=== PATIENT | female | born 1955 | race Caucasian/White ===

== ENCOUNTER 2019-03-25 11:47 | Inpatient (IN) | payer BC ==
--- NOTE | 2019-03-25 12:14 | EDM.PDOC ---
ED HPI GENERAL MEDICAL PROBLEM - General Chief Complaint: General Stated Complaint: TRYING TO GET OFF PAIN PILLS Time Seen by Provider: 03/25/19 12:04 Source of Information: Reports: Patient, Provider (Dr. Robles, PCP) History Limitations: Reports: No Limitations - History of Present Illness INITIAL COMMENTS - FREE TEXT/NARRATIVE: Patient presents with vomiting that started 3 days ago. Vomiting has been 1-2x/ day with most recent 3-4 hours ago. She is trying to get off hydrocodone she has been using for fibromyalgia. She says she thinks she has been on narcotics for her fibromyalgia for 11 years. She has been on contract with her PCP for 7 tabs a day and has been using 8/day so ran out early. She tried to refill them early and couldn't (she said they were stolen then later admitted they weren't) . She has now been without hydrocodone for 4 days. She has also been taking Alprazolam bid for the past 2 years and ran out of them 5 days ago. Right now she is feeling nausea, pain from fibromyalgia and anxiety and knows she is in opiate withdrawal. 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 She definitely does not want any narcotics. I also questioned her about any suicidal thoughts or intent and she replies that she definitely does not have any suicidal thought or intent and would never do that to her family. I feel confident in her reply. Back Pain Score (Numeric/FACES): 7 - Related Data Allergies Allergy/AdvReac Type Severity Reaction Status Date / Time gabapentin Allergy Hives Verified 03/25/19 12:09 pregabalin [From Lyrica] Allergy Hives Verified 03/25/19 12:09 Home Meds: Home Meds ALPRAZolam [Alprazolam] 1 mg PO BID PRN 03/25/19 [History] Brimonidine/Timolol [Combigan 0.2%/0.5% Ophth Soln] 1 drop EYEBOTH BEDTIME 03/25 [History] DULoxetine HCl [Duloxetine HCl] 30 mg PO Q48H 03/25/19 [History] Furosemide 20 - 60 mg PO DAILY PRN 03/25/19 [History] Hydrocodone/Acetaminophen [Hydrocodon-Acetaminophn 10-325] 1 - 2 tab PO Q4H PRN 03/25/19 [History] Latanoprost 1 drop EYEBOTH DAILY 03/25/19 [History] Melatonin 6 mg PO BEDTIME 03/25/19 [History] Methocarbamol 500 mg PO TID PRN 03/25/19 [History] Ondansetron [Zofran ODT] 4 mg PO Q6H PRN 03/25/19 [History] Ramipril 10 mg PO DAILY 03/25/19 [History] Spironolactone [Aldactone] 25 mg PO DAILY 03/25/19 [History] cloNIDine [Catapres] 0.1 mg PO BEDTIME 03/25/19 [History] cloNIDine [Catapres] 0.2 mg PO DAILY 03/25/19 [History] ED ROS GENERAL - Review of Systems Review Of Systems: See Below Constitutional: Reports: Malaise, Decreased Appetite (hasn't eaten much in last 4 days). Denies: Fever, Chills, Weakness HEENT: Denies: Ear Discharge, Ear Pain, Throat Pain, Vision Change Respiratory: Denies: Shortness of Breath, Cough Cardiovascular: Reports: Palpitations (occasionally with anxiety). Denies: Chest Pain, Lightheadedness, Syncope Endocrine: Reports: No Symptoms GI/Abdominal: Reports: Diarrhea (a little with the vomiting), Decreased Appetite , Nausea, Vomiting (see HPI). Denies: Abdominal Pain : Reports: Incontinence (mild, chronic with fallen bladder). Denies: Dysuria , Flank Pain, Frequency Musculoskeletal: Reports: Back Pain (chronic but better since surgery 4 months ago), Other (chronic fibromyalgia) Skin: Denies: Cyanosis, Jaundice, Mottled, Pallor, Diaphoresis Neurological: Denies: Confusion, Dizziness, Headache, Seizure, Syncope, Trouble Speaking, Difficulty Walking Psychiatric: Reports: Anxiety. Denies: Agitation, Confusion, Suicidal Ideation ED EXAM, GENERAL - Physical Exam Exam: See Below Exam Limited By: No Limitations General Appearance: Alert, No Apparent Distress, Thin Eye Exam: Bilateral Eye: EOMI, Normal Inspection, PERRL Ears: Normal External Exam, Normal Canal, Hearing Grossly Normal, Normal TMs Nose: Normal Inspection, No Blood Throat/Mouth: Normal Inspection, Normal Lips, Normal Oropharynx, Normal Voice, No Airway Compromise Head: Atraumatic, Normocephalic Neck: Normal Inspection, Supple, Non-Tender, Full Range of Motion Respiratory/Chest: No Respiratory Distress, Lungs Clear, Normal Breath Sounds Cardiovascular: Normal Peripheral Pulses, Regular Rate, Rhythm, No Edema, No Murmur Peripheral Pulses: 2+: Carotid (L), Carotid (R), Radial (L), Radial (R), Posterior Tibial (L), Posterior Tibial (R) GI/Abdominal: Normal Bowel Sounds, Soft, Non-Tender, No Organomegaly, No Distention Back Exam: Normal Inspection, Full Range of Motion. No: CVA Tenderness (L), CVA Tenderness (R) Extremities: Normal Inspection, Normal Range of Motion, Non-Tender, No Pedal Edema Neurological: Alert, Oriented, CN II-XII Intact, Normal Cognition, No Motor/ Sensory Deficits Psychiatric: Normal Affect, Anxious Skin Exam: Warm, Dry, Intact, Normal Color, No Rash Course - Vital Signs Last Recorded V/S: Last Vital Signs Temp 98.4 F 03/25/19 11:50 Pulse 71 03/25/19 11:50 Resp 20 03/25/19 11:50 BP 173/91 H 03/25/19 13:36 Pulse Ox 99 03/25/19 11:50 - Orders/Labs/Meds Labs: Laboratory Tests 03/25/19 03/25/19 03/25/19 Range/Units 12:50 12:50 12:50 WBC 6.73 (5.00-10.00) 10^3/uL RBC 4.10 (3.80-5.50) 10^6/uL Hgb 13.3 (12.0-16.0) g/dL Hct 37.7 (37.0-47.0) % MCV 92.0 D (82.0-92.0) fL MCH 32.4 H (27.0-31.0) pg MCHC 35.3 (32.0-36.0) g/dL RDW 13.7 (11.5-14.5) % Plt Count 277 (150-400) 10^3/uL MPV 9.3 (7.4-10.4) fL Immature Gran % (Auto) 0.0 (0.0-5.0) % Neut % (Auto) 67.4 (50.0-70.0) % Lymph % (Auto) 24.5 (20.0-40.0) % Nelson % (Auto) 6.1 (2.0-8.0) % Eos % (Auto) 1.6 (1.0-3.0) % Baso % (Auto) 0.4 (0.0-1.0) % Immature Gran # (Auto) 0.00 (0.00-0.50) 10^3/uL Neut # (Auto) 4.53 (2.50-7.00) 10^3/uL Lymph # (Auto) 1.65 (1.00-4.00) 10^3/uL Nelson # (Auto) 0.41 (0.10-0.80) 10^3/uL Eos # (Auto) 0.11 (0.10-0.30) 10^3/uL Baso # (Auto) 0.03 (0.00-0.10) 10^3/uL Sodium 144 (136-145) mmol/L Potassium 3.4 (3.3-5.3) mmol/L Chloride 102 (98-115) mmol/L Carbon Dioxide 28.5 (21.0-32.0) mmol/L Anion Gap 16.9 H (5-15) mmol/L BUN 15 (6-25) mg/dL Creatinine 0.55 (0.51-1.17) mg/dL Est Cr Clr Drug Dosing 79.22 mL/min Estimated GFR (MDRD) > 60 mL/min Glucose 89 (75 - 99) mg/dL Calcium 9.8 (8.7-10.3) mg/dL Magnesium 1.9 (1.8-2.4) mg/dL Total Bilirubin 0.6 (0.2-1.0) mg/dL AST 26 (15-37) U/L ALT 33 (12-78) U/L Alkaline Phosphatase 74 (46-116) IU/L Total Protein 8.2 (6.4-8.2) g/dL Albumin 4.67 (3.00-4.80) g/dL Ethyl Alcohol < 3 (NONE DETECTED) mg/dL Meds: Medications Discontinued Medications Generic Name Dose Route Start Last Admin Trade Name Freq PRN Reason Stop Dose Admin Sodium Chloride 1,000 mls @ 999 mls/hr 03/25/19 12:36 03/25/19 12:53 Normal Saline IV 03/25/19 13:36 999 mls/hr .BOLUS ONE Administration Ketorolac Tromethamine 30 mg 03/25/19 12:45 03/25/19 13:05 Toradol IVPUSH 03/25/19 12:46 30 mg ONETIME ONE Administration Ondansetron HCl 4 mg 03/25/19 12:36 03/25/19 13:00 Zofran IVPUSH 03/25/19 12:37 4 mg ONETIME ONE Administration - Re-Assessments/Exams Free Text/Narrative Re-Assessment/Exam: 03/25/19 13:03 Pt's called and told Dr. Ramirez that patient has been drinking heavily the last few days, mostly Vodka. Will check ETOH to see where she's at now. Patient is getting IV fluids, zofran and toradol now. 03/25/19 13:49 BP came down on its own from initial high but is now back up to 173/91. Since she is sure she vomited up her AM blood pressure meds we will give those now. Discussed case with Dr. Ramirez who is comfortable with keeping her in [facility] for opiate withdrawal treatment and to make plans for longer term treatment for addiction somewhere. She accepted for admission. Patient seems to sincerely want to get help and be free of narcotics as well. 03/25/19 13:58 Discussed findings and treatment plan with patient who agrees. Nausea and pain are better and she is feeling better overall. She would like to stay here for inpatient treatment and then get set up for a treatment center. Patient stable. 03/25/19 14:13 Since we don't have Ramipril available the pharmacist advised replacing with Lisinopril 20 mg. Departure - Departure Time of Disposition: 14:05 Disposition: Admitted As Inpatient 68 Condition: Good Clinical Impression: Opiate withdrawal - Discharge Information Referrals: Maribel Jimenez MD [Primary Care Provider] - Forms: ED Department Discharge
[2019-03-25] MEDS ORDERED: Sodium Chloride 0.9% 1,000 ML IV ONE (12:36)
[2019-03-25] MEDS ORDERED: Ondansetron 4 MG/2 ML SDV IVPUSH ONE (12:36)
[2019-03-25] MEDS ORDERED: Ketorolac 30 MG/ML SDV IVPUSH ONE (12:45)
[2019-03-25 13:26] LABS: ANION GAP 16.9 mmol/L (5-15); CHLORIDE,CL 102 mmol/L (98-115); SODIUM,NA 144 mmol/L (136-145)
[2019-03-25] MEDS ORDERED: Spironolactone 25 MG Tab PO ONE (13:45)
[2019-03-25] MEDS ORDERED: Lisinopril 20 MG Tab PO ONE (14:11)
[2019-03-25] MEDS ORDERED: Methocarbamol 500 MG Tab PO PRN (14:49)
[2019-03-25] MEDS ORDERED: Furosemide 20 MG Tab PO PRN (14:49)
[2019-03-25] MEDS ORDERED: DULoxetine 30 MG Cap PO SCH (15:00)
[2019-03-25] MEDS ORDERED: Mirtazapine 15 MG Tab PO PRN (15:45)
[2019-03-25] MEDS: Sodium Chloride 0.9% 1,000 ML IV SCH (15:57)
[2019-03-25] MEDS: Ondansetron 4 MG/2 ML SDV IV PRN (18:05)
[2019-03-25] MEDS: Pantoprazole 40 MG Vial IVPUSH SCH (19:31)
[2019-03-25] MEDS: Ketorolac 30 MG/ML SDV IVPUSH PRN (19:32)
[2019-03-25] MEDS: Acetaminophen 325 MG Tab PO PRN (20:26)
[2019-03-25] MEDS: Melatonin 3 MG Tab PO SCH (20:26)
[2019-03-25] MEDS: DULoxetine 30 MG Cap PO SCH (20:26)
[2019-03-25] MEDS: cloNIDine 0.1 MG Tab PO SCH (20:27)
[2019-03-25] MEDS: Brimonidine/Timolol 0.2%/0.5% Ophth Soln 5 ML Bottle EYEBOTH SCH (20:29)
[2019-03-25] MEDS: Latanoprost 0.005% Ophth Soln 2.5 ML Bottle EYEBOTH SCH (20:31)
[2019-03-26] MEDS: Acetaminophen 325 MG Tab PO PRN ×3 (01:02→13:11)
[2019-03-26] MEDS: Ondansetron 4 MG/2 ML SDV IV PRN (01:04)
[2019-03-26] MEDS: Ketorolac 30 MG/ML SDV IVPUSH PRN ×3 (01:15→16:36)
[2019-03-26] MEDS: Sodium Chloride 0.9% 1,000 ML IV SCH (02:12)
[2019-03-26] MEDS: cloNIDine 0.1 MG Tab PO SCH ×2 (08:00→20:33)
[2019-03-26] MEDS: Nicotine 14 MG/24 Hr Patch TRDERM SCH (08:01)
[2019-03-26] MEDS: Spironolactone 25 MG Tab PO SCH (08:01)
[2019-03-26] MEDS: Pantoprazole 40 MG Vial IVPUSH SCH (08:02)
[2019-03-26 08:10] LABS: ANION GAP 12.5 mmol/L (5-15); CHLORIDE,CL 107 mmol/L (98-115); SODIUM,NA 146 mmol/L (136-145)
[2019-03-26] MEDS ORDERED: Lisinopril 20 MG Tab PO SCH (09:00)
[2019-03-26] MEDS ORDERED: Lisinopril 10 MG Tab PO ONE (09:17)
[2019-03-26] MEDS ORDERED: Mirtazapine 15 MG Tab PO PRN (13:21)
[2019-03-26] MEDS: hydrALAZINE 10 MG Tab PO PRN (13:23)
--- NOTE | 2019-03-26 14:20 | PN ---
03/26/2019 PATIENT NAME: ANASTASIYA PHILLIPS SUBJECTIVE: This is a 63-year-old female who was admitted through the emergency room on 03/25/2019. She presented with vomiting that started 3 days ago. She had been vomiting 1-2 times a day with most recent being 3-4 hours prior to presentation. The patient has been on hydrocodone for several years. She was on a pain contract with Dr. Watson. She ran out of her medications early due to the fact that she was taking more than prescribed. She tried to refill them early and could not. She had previously stated that the medications were stolen and later admitted they were not. She is now on day 5 without narcotics. She was also taking alprazolam b.i.d. for the last 2 years and also ran out of those 5 days ago. The patient has been using Toradol injections for pain relief. Her blood pressure has been elevated. This morning, her initial blood pressure was 210/125. After receiving 20 mg of lisinopril, it went down to 163/99. I ordered an additional 20 mg of lisinopril to be given at 9:34 and her blood pressure at 10:15 was 187/111. The patient was initially planning to be discharged today. The family is in the process of trying to get her into a drug rehabilitation center. Apparently, she also has some problems with alcohol abuse. The called yesterday and reported to Dr. Watson that the patient had been drinking heavily over the course of the past few days, mostly vodka. OBJECTIVE: VITAL SIGNS: Temperature is 97.2, pulse 63, respirations 14, blood pressure 166/101. SKIN: Warm and dry to touch. HEART: Normal. LUNGS: Normal. EXTREMITIES: There is no pedal edema. IMPRESSION: 1. Narcotic withdrawal. I believe she is over the worst of it as this is day 5 without narcotics as well as benzodiazepines. She is using Toradol for pain with some relief. 2. Hypertension. This is uncontrolled and is one of the primary reasons. The patient is being kept as an inpatient. She had an additional dose of lisinopril 20 mg today in addition to her 20 mg that she normally was prescribed. She may need to be on a higher dose of lisinopril and/or another antihypertensive agent. 3. Need for drug and alcohol treatment. The family is calling various facilities in the area to facilitate an inpatient stay. The patient is agreeable with staying in the hospital. She realizes how important it is for her to stick with the plan to become narcotic as well as alcohol free. I did discuss the case with Dr. Maribel Watson, who agrees the patient should be kept hospitalized especially due to hypertension. The patient did have lab work drawn today, which was unremarkable with the exception of a mildly elevated sodium of 146. We will continue to follow closely. /[id number]/MODL
[2019-03-26] MEDS ORDERED: hydrALAZINE 10 MG Tab PO ONE (15:30)
[2019-03-26] MEDS: Latanoprost 0.005% Ophth Soln 2.5 ML Bottle EYEBOTH SCH (20:32)
[2019-03-26] MEDS: Brimonidine/Timolol 0.2%/0.5% Ophth Soln 5 ML Bottle EYEBOTH SCH (20:33)
[2019-03-26] MEDS: DULoxetine 30 MG Cap PO SCH (20:34)
[2019-03-26] MEDS: Melatonin 3 MG Tab PO SCH (20:34)
[2019-03-26] MEDS ORDERED: Mirtazapine 15 MG Tab PO SCH (21:00)
[2019-03-26] MEDS ORDERED: DULoxetine 30 MG Cap PO SCH (21:00)
[2019-03-27] MEDS ORDERED: diphenhydrAMINE 25 MG Cap PO ONE (00:49)
[2019-03-27] MEDS: Acetaminophen 325 MG Tab PO PRN ×2 (01:07→06:08)
[2019-03-27] MEDS: Nicotine 14 MG/24 Hr Patch TRDERM SCH ×2 (01:17→09:03)
[2019-03-27] MEDS: Ketorolac 30 MG/ML SDV IVPUSH PRN (05:56)
[2019-03-27] MEDS: hydrALAZINE 10 MG Tab PO PRN (06:06)
[2019-03-27 08:08] LABS: ANION GAP 14.5 mmol/L (5-15); CHLORIDE,CL 107 mmol/L (98-115); SODIUM,NA 149 mmol/L (136-145)
[2019-03-27] MEDS ORDERED: Lisinopril 20 MG Tab PO SCH (09:00)
[2019-03-27] MEDS: Spironolactone 25 MG Tab PO SCH (09:00)
[2019-03-27] MEDS: cloNIDine 0.1 MG Tab PO SCH (09:01)
[2019-03-27] MEDS: Pantoprazole 40 MG Vial IVPUSH SCH (09:06)
--- NOTE | 2019-03-27 14:49 | DISCH ---
HOSPITAL COURSE: This is a 63-year-old female, who is being discharged from the hospital today. She was admitted to the hospital through the emergency room on 03/25/2019 with opioid and benzodiazepine withdrawal symptoms. She had been without both for 4 days prior to admission. She is now 6 days without narcotics or benzodiazepines. She has been accepted in the [facility] for drug and alcohol treatment. Apparently, she was also consuming quite a bit of vodka at home on self medicating. She has been stable here. Her lab work has looked good. The only lab abnormality was a sodium of 149 today. White count has been normal. Hemoglobin has been stable at 14.1. We have been battling with high blood pressure. She was started on p.r.n. hydralazine in addition to spironolactone, lisinopril, formally ramipril. Blood pressure this afternoon was 137/85. It has gone as high as 198/110. Actually, yesterday it was as high as 210/111. PHYSICAL EXAMINATION: VITAL SIGNS: Temp is 99, pulse 65, respirations 14, blood pressure 137/85, O2 is 99% on room air. SKIN: Warm and dry to touch. HEART: Normal. LUNGS: Normal. EXTREMITIES: There is no pedal edema. IMPRESSION: 1. 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 The patient has gone through 6 days of abstinence from all. She has had very minimal withdrawal symptoms. 2. Hypertension. This does seem to be better controlled now with hydralazine added to her medication regimen. 3. She has had insomnia in the hospital. She is using melatonin as well as Remeron. She also received a one time dose of Benadryl last night. We will welcome updates from [facility]. All medical records have been faxed to the facility and she has been medically cleared. /[id number]/MODL
== END 2019-03-27 14:20 | disposition home or self-care (01) | DRG 773 ==
LOC: KA.ED 11:47 → KA.MS 14:01
PROVIDERS: ADMIT Internal Medicine; ATTEND Internal Medicine
DX: F11.23 Opioid dependence with withdrawal (principal); F19.239 Other psychoactive substance dependence with withdrawal, unspecified; F10.20 Alcohol dependence, uncomplicated; I10 Essential (primary) hypertension; G47.00 Insomnia, unspecified; M79.7 Fibromyalgia; F41.9 Anxiety disorder, unspecified; Z88.8 Allergy status to other drugs, medicaments and biological substances; Z79.899 Other long term (current) drug therapy; Z79.891 Long term (current) use of opiate analgesic
CPT/HCPCS: 36415; 80048; 80053; 83735; 85025; 96361; 96374; 96375; 99284-25; A9270-GY; C9113; G0480; J1885; J2405; J7030

== ENCOUNTER 2022-08-03 13:28 | Inpatient (IN) | payer OTHER, MEDICARE ==
[2022-08-03] MEDS ORDERED: Ketorolac 30 MG/ML SDV IM ONE (13:59)
[2022-08-03] MEDS ORDERED: HYDROmorphone 1 MG/ML Syringe IM ONE (14:51)
[2022-08-03] MEDS: Acetaminophen/HYDROcodone 325-10 MG Tab PO PRN (18:08)
[2022-08-03] MEDS ORDERED: Ibuprofen 600 MG Tab PO PRN (19:45)
[2022-08-03] MEDS ORDERED: Prochlorperazine 5 MG Tab PO PRN (20:06)
[2022-08-03] MEDS ORDERED: Non-Formulary Medication 1 Each (Clobetasol [Clobetasol Propionate 0.05%] 15 GM Tube) TOP PRN (20:06)
[2022-08-03] MEDS ORDERED: Zolpidem 5 MG Tab PO PRN (20:06)
[2022-08-03] MEDS: Nicotine 14 MG/24 Hr Patch TRDERM SCH (20:59)
[2022-08-03] MEDS: Cyclobenzaprine 10 MG Tab PO PRN (21:00)
[2022-08-03] MEDS ORDERED: Non-Formulary Medication 1 Each (Gabapentin 600 MG Tablet) PO SCH (21:00)
[2022-08-03] MEDS ORDERED: Ketorolac 30 MG/ML SDV IVPUSH SCH (21:00)
[2022-08-03] MEDS ORDERED: Latanoprost 0.005% Ophth Soln 2.5 ML Bottle EYEBOTH SCH (21:00)
[2022-08-03] MEDS ORDERED: Gabapentin 300 MG Cap PO ONE ×2 (21:00→22:28)
[2022-08-03] MEDS: ALPRAZolam 0.25 MG Tab PO PRN (22:36)
[2022-08-03] MEDS: Lisinopril 20 MG Tab PO SCH (22:36)
[2022-08-03] MEDS: Pantoprazole 40 MG Tab.CR PO SCH (22:36)
[2022-08-03] MEDS: Enoxaparin 40 MG/0.4 ML Syringe SUBCUT SCH (22:37)
[2022-08-04] MEDS: HYDROmorphone 1 MG/ML Syringe IVPUSH PRN ×4 (00:03→18:25)
[2022-08-04] MEDS ORDERED: Ketorolac 30 MG/ML SDV IVPUSH PRN (03:00)
[2022-08-04] MEDS: Acetaminophen/HYDROcodone 325-10 MG Tab PO PRN ×2 (07:21→14:50)
[2022-08-04] MEDS: Cyclobenzaprine 10 MG Tab PO PRN ×3 (07:40→21:02)
[2022-08-04] MEDS: Timolol Maleate 0.5% Ophth Soln 5 ML Bottle EYEBOTH SCH ×2 (08:49→21:10)
[2022-08-04] MEDS: Gabapentin 300 MG Cap PO SCH ×4 (08:50→20:01)
[2022-08-04] MEDS: Rosuvastatin 10 MG Tab PO SCH (08:50)
[2022-08-04] MEDS: Nicotine 14 MG/24 Hr Patch TRDERM SCH (08:52)
[2022-08-04] MEDS: Escitalopram 10 MG Tab PO SCH (08:52)
[2022-08-04] MEDS ORDERED: Fluticasone NASAL Spray 16 GM Bottle NASBOTH PRN (09:00)
[2022-08-04] MEDS: Hydrochlorothiazide 25 MG Tab PO SCH (09:07)
[2022-08-04] MEDS: Brimonidine 0.2% Ophth Soln 15 ML Bottle EYEBOTH SCH ×2 (09:44→21:07)
[2022-08-04] MEDS ORDERED: Sodium Chloride 0.9% 1,000 ML IV ONE (13:04)
[2022-08-04] MEDS ORDERED: Sodium Chloride 0.9% 1,000 ML ONE (13:06)
[2022-08-04] MEDS: Acetaminophen 325 MG Tab PO PRN ×2 (16:11→21:03)
[2022-08-04] MEDS: Lisinopril 20 MG Tab PO SCH (20:02)
[2022-08-04] MEDS: ALPRAZolam 0.25 MG Tab PO PRN (21:05)
[2022-08-04] MEDS: Pantoprazole 40 MG Tab.CR PO SCH (21:05)
[2022-08-04] MEDS: Enoxaparin 40 MG/0.4 ML Syringe SUBCUT SCH (21:08)
[2022-08-05] MEDS: HYDROmorphone 1 MG/ML Syringe IVPUSH PRN ×5 (00:56→22:03)
[2022-08-05] MEDS: Acetaminophen/HYDROcodone 325-10 MG Tab PO PRN ×2 (03:41→09:41)
[2022-08-05] MEDS: Ondansetron 4 MG Tab.DIS PO PRN (04:16)
[2022-08-05] MEDS: Escitalopram 10 MG Tab PO SCH (08:17)
[2022-08-05] MEDS: Timolol Maleate 0.5% Ophth Soln 5 ML Bottle EYEBOTH SCH ×2 (08:25→21:12)
[2022-08-05] MEDS: Rosuvastatin 10 MG Tab PO SCH (08:26)
[2022-08-05] MEDS: Nicotine 14 MG/24 Hr Patch TRDERM SCH (08:26)
[2022-08-05] MEDS: Brimonidine 0.2% Ophth Soln 15 ML Bottle EYEBOTH SCH ×2 (08:26→21:07)
[2022-08-05] MEDS: Gabapentin 300 MG Cap PO SCH ×3 (08:26→21:07)
[2022-08-05] MEDS: Acetaminophen 325 MG Tab PO PRN ×3 (08:27→21:07)
[2022-08-05] MEDS: Cyclobenzaprine 10 MG Tab PO PRN ×3 (08:27→21:09)
[2022-08-05] MEDS: Hydrochlorothiazide 25 MG Tab PO SCH (08:56)
[2022-08-05] MEDS: Sodium Chloride 0.9% 1,000 ML IV SCH ×2 (13:15→23:12)
[2022-08-05] MEDS: Ondansetron 4 MG/2 ML SDV IVPUSH PRN (13:53)
[2022-08-05] MEDS: oxyCODONE 5 MG Tab PO PRN (13:53)
[2022-08-05] MEDS: Pantoprazole 40 MG Tab.CR PO SCH (21:08)
[2022-08-05] MEDS: Lisinopril 20 MG Tab PO SCH (21:10)
[2022-08-05] MEDS ORDERED: Bisacodyl 5 MG Tab PO PRN (21:54)
[2022-08-06] MEDS: HYDROmorphone 1 MG/ML Syringe IVPUSH PRN ×3 (03:17→13:21)
[2022-08-06] MEDS: Ondansetron 4 MG/2 ML SDV IVPUSH PRN ×2 (05:50→12:24)
[2022-08-06] MEDS: oxyCODONE 5 MG Tab PO PRN ×2 (05:50→17:21)
[2022-08-06] MEDS: Acetaminophen 325 MG Tab PO PRN (07:39)
[2022-08-06] MEDS: Cyclobenzaprine 10 MG Tab PO PRN (07:40)
[2022-08-06] MEDS: Hydrochlorothiazide 25 MG Tab PO SCH (08:55)
[2022-08-06] MEDS: Gabapentin 300 MG Cap PO SCH ×2 (08:55→12:23)
[2022-08-06] MEDS: Rosuvastatin 10 MG Tab PO SCH (08:55)
[2022-08-06] MEDS: Escitalopram 10 MG Tab PO SCH (08:55)
[2022-08-06] MEDS: Nicotine 14 MG/24 Hr Patch TRDERM SCH (08:56)
[2022-08-06] MEDS: Brimonidine 0.2% Ophth Soln 15 ML Bottle EYEBOTH SCH (09:08)
[2022-08-06] MEDS: Timolol Maleate 0.5% Ophth Soln 5 ML Bottle EYEBOTH SCH (09:09)
[2022-08-06] MEDS: Sodium Chloride 0.9% 1,000 ML IV SCH ×2 (09:25→17:56)
[2022-08-06] MEDS ORDERED: Enoxaparin 40 MG/0.4 ML Syringe SUBCUT ONE (15:37)
[2022-08-06] MEDS: Ondansetron 4 MG Tab.DIS PO PRN (17:24)
== END 2022-08-06 18:15 | DRG 534 ==
LOC: KA.ED 13:28 → KA.MS 17:08
PROVIDERS: ADMIT Internal Medicine; ATTEND Internal Medicine
DX: S72.492A Other fracture of lower end of left femur, initial encounter for closed fracture (principal); M79.7 Fibromyalgia; F41.9 Anxiety disorder, unspecified; F32.A Depression, unspecified; I10 Essential (primary) hypertension; H54.7 Unspecified visual loss; M54.2 Cervicalgia; G89.29 Other chronic pain; R32 Unspecified urinary incontinence; Z79.899 Other long term (current) drug therapy; W00.0XXA Fall on same level due to ice and snow, initial encounter
CPT/HCPCS: 36415; 51702; 73560-LT; 73700-LT; 80053; 85025; 96372; 99285-25; A9270-GY; J1170; J1650; J1885; J2405; J7030; Q0164

== ENCOUNTER 2023-01-16 08:03 | Emergency (ER) | payer OTHER, MEDICARE ==
[2023-01-16] MEDS: Ondansetron 4 MG/2 ML SDV IVPUSH ONE (08:17)
[2023-01-16] MEDS: HYDROmorphone 1 MG/ML Syringe IVPUSH ONE (08:19)
[2023-01-16] MEDS: Ondansetron 4 MG/2 ML SDV ONE (08:24)
[2023-01-16] MEDS: HYDROmorphone 1 MG/ML Syringe ONE (08:24)
[2023-01-16] MEDS: Ketorolac 30 MG/ML SDV IVPUSH ONE (09:53)
== END 2023-01-16 10:15 | disposition home or self-care (01) ==
LOC: KA.ED 08:03
DX: M54.31 Sciatica, right side (principal); F17.210 Nicotine dependence, cigarettes, uncomplicated; I10 Essential (primary) hypertension; K21.9 Gastro-esophageal reflux disease without esophagitis; Z79.899 Other long term (current) drug therapy
CPT/HCPCS: 96374; 96375; 99283-25; 99284; J1170; J1885; J2405

== ENCOUNTER 2023-12-03 07:54 | Day surgery (SDC) | payer OTHER, MEDICARE ==
[2023-12-03] MEDS ORDERED: Sodium Chloride 0.9% 10 ML Syringe FLUSH PRN (08:00)
[2023-12-03] MEDS: Lactated Ringers 1,000 ML IV SCH (08:30)
[2023-12-03] MEDS ORDERED: Midazolam 1 MG/ML 2 ML SDV ONE (08:41)
[2023-12-03] MEDS ORDERED: Propofol 200 MG/20 ML SDV ONE (08:41)
[2023-12-03] MEDS ORDERED: Lidocaine 2% 5 ML SDV ONE (08:42)
[2023-12-03] MEDS ORDERED: Glycopyrrolate 0.2 MG/ML SDV ONE (08:42)
== END 2023-12-03 11:13 | disposition home or self-care (01) ==
LOC: KA.SDS 07:54
PROVIDERS: ATTEND Surgery
DX: Z12.11 Encounter for screening for malignant neoplasm of colon (principal); K29.50 Unspecified chronic gastritis without bleeding; K31.9 Disease of stomach and duodenum, unspecified; D12.3 Benign neoplasm of transverse colon; K57.30 Diverticulosis of large intestine without perforation or abscess without bleeding; K21.00 Gastro-esophageal reflux disease with esophagitis, without bleeding; F41.9 Anxiety disorder, unspecified; M54.9 Dorsalgia, unspecified; I10 Essential (primary) hypertension; F17.210 Nicotine dependence, cigarettes, uncomplicated; Z88.8 Allergy status to other drugs, medicaments and biological substances; Z79.899 Other long term (current) drug therapy
CPT/HCPCS: 00811; J2250; J2704; J3490; J7120

== ENCOUNTER 2024-02-20 13:41 | Emergency (ER) | payer OTHER, MEDICARE ==
[2024-02-20] MEDS: Sodium Chloride 0.9% 1,000 ML IV ONE (14:20)
[2024-02-20 14:24] LABS: BASOPHILS ABSOLUTE AUTO 0.04 10^3/uL (0.00-0.10); BASOPHILS PERCENT AUTO 0.4 % (0.0-1.0); EOSINOPHILS ABSOLUTE AUTO 0.23 10^3/uL (0.10-0.30); EOSINOPHILS PERCENT AUTO 2.2 % (1.0-3.0); HEMATOCRIT 35.1 % (37.0-47.0); HEMOGLOBIN 11.8 g/dL (12.0-16.0); IMMATURE GRAN ABSOLUTE AUTO 0.02 10^3/uL (0.00-0.50); IMMATURE GRAN PERCENT AUTO 0.2 % (0.0-5.0); LYMPHOCYTES PERCENT AUTO 15.4 % (20.0-40.0); MEAN CORPUSCULAR HEMOGLOBIN 34.2 pg (27.0-31.0); MEAN CORPUSCULAR HGB CONC 33.6 g/dL (32.0-36.0); MEAN CORPUSCULAR VOLUME 101.7 fL (82.0-92.0); MEAN PLATELET VOLUME 8.7 fL (7.4-10.4); MONOCYTES ABSOLUTE AUTO 0.74 10^3/uL (0.10-0.80); MONOCYTES PERCENT AUTO 7.1 % (2.0-8.0); NEUTROPHILS ABSOLUTE AUTO 7.75 10^3/uL (2.50-7.00); NEUTROPHILS PERCENT AUTO 74.7 % (50.0-70.0); PLATELET COUNT,PLT 302 10^3/uL (150-400); RED BLOOD CELL COUNT 3.45 10^6/uL (3.80-5.50); RED CELL DISTRIBUTION WIDTH 12.6 % (11.5-14.5); WHITE BLOOD CELL COUNT,WBC 10.38 10^3/uL (5.00-10.00)
[2024-02-20 14:35] LABS: APPEARANCE,URINE CLEAR (CLEAR); BILIRUBIN,URINE NEGATIVE (NEGATIVE); COLOR,URINE YELLOW (YELLOW); GLUCOSE,URINE NEGATIVE (NEGATIVE); KETONES,URINE NEGATIVE (NEGATIVE); LEUKOCYTE ESTERASE,URINE NEGATIVE (NEGATIVE); NITRITE,URINE NEGATIVE (NEGATIVE); OCCULT BLOOD,URINE NEGATIVE (NEGATIVE); PROTEIN,URINE NEGATIVE (NEGATIVE); UROBILINOGEN,URINE 0.2 E.U./dL (0.2-1.0)
[2024-02-20 14:40] LABS: ALBUMIN 3.99 g/dL (3.40-5.00); ANION GAP 13.2 mmol/L (5-15); BILIRUBIN TOTAL 0.4 mg/dL (0.2-1.0); CREATININE 0.84 mg/dL (0.51-1.17); EST CRCL DRUG DOSING (CG) 48.59 mL/min; POTASSIUM,K 3.2 mmol/L (3.5-5.1); PROTEIN TOTAL,TP 7.2 g/dL (6.4-8.2)
[2024-02-20 14:48] LABS: CALCIUM 15.8 mg/dL (8.7-10.3)
[2024-02-20] MEDS: Ketorolac 30 MG/ML SDV IVPUSH ONE (16:18)
[2024-02-20] MEDS: Sodium Chloride 0.9% 1,000 ML IV SCH (16:18)
== END 2024-02-20 16:30 ==
LOC: KA.ED 13:41
DX: E83.52 Hypercalcemia (principal); R53.83 Other fatigue; I10 Essential (primary) hypertension; E78.00 Pure hypercholesterolemia, unspecified; Z79.899 Other long term (current) drug therapy; Z88.8 Allergy status to other drugs, medicaments and biological substances
CPT/HCPCS: 36415; 80053; 81003; 85025; 96361; 96374; 99285-25; J1885; J7030

== ENCOUNTER 2024-08-13 13:21 | Inpatient (IN) | payer MEDICARE, OTHER ==
[2024-08-13] MEDS ORDERED: Sodium Chloride 0.9% 10 ML Syringe FLUSH PRN (13:28)
[2024-08-13 13:52] LABS: BASOPHILS ABSOLUTE AUTO 0.02 10^3/uL (0.00-0.10); BASOPHILS PERCENT AUTO 0.2 % (0.0-1.0); EOSINOPHILS ABSOLUTE AUTO 0.03 10^3/uL (0.10-0.30); EOSINOPHILS PERCENT AUTO 0.2 % (1.0-3.0); HEMATOCRIT 28.8 % (37.0-47.0); HEMOGLOBIN 9.6 g/dL (12.0-16.0); IMMATURE GRAN PERCENT AUTO 0.8 % (0.0-0.4); LYMPHOCYTES ABSOLUTE AUTO 1.11 10^3/uL (1.00-4.00); LYMPHOCYTES PERCENT AUTO 9.2 % (20.0-40.0); MEAN CORPUSCULAR HEMOGLOBIN 30.9 pg (27.0-31.0); MEAN CORPUSCULAR HGB CONC 33.3 g/dL (32.0-36.0); MEAN CORPUSCULAR VOLUME 92.6 fL (82.0-92.0); MEAN PLATELET VOLUME 8.5 fL (7.4-10.4); MONOCYTES ABSOLUTE AUTO 0.95 10^3/uL (0.10-0.80); MONOCYTES PERCENT AUTO 7.9 % (2.0-8.0); NEUTROPHILS ABSOLUTE AUTO 9.87 10^3/uL (2.50-7.00); NEUTROPHILS PERCENT AUTO 81.7 % (50.0-70.0); PLATELET COUNT,PLT 483 10^3/uL (150-400); RED BLOOD CELL COUNT 3.11 10^6/uL (3.80-5.50); RED CELL DISTRIBUTION WIDTH 14.8 % (11.5-14.5); WHITE BLOOD CELL COUNT,WBC 12.08 10^3/uL (5.00-10.00)
[2024-08-13] MEDS: Sodium Chloride 0.9% 1,000 ML IV ONE (13:55)
[2024-08-13 14:06] LABS: ALBUMIN 2.19 g/dL (3.40-5.00); ANION GAP 16.3 mmol/L (5-15); BILIRUBIN TOTAL 0.2 mg/dL (0.2-1.0); CALCIUM 8.1 mg/dL (8.7-10.3); CARBON DIOXIDE,CO2 27.9 mmol/L (21.0-32.0); CREATININE 0.78 mg/dL (0.51-1.17); EST CRCL DRUG DOSING (CG) 50.12 mL/min; POTASSIUM,K 3.2 mmol/L (3.5-5.1); PROTEIN TOTAL,TP 6.6 g/dL (6.4-8.2)
[2024-08-13 14:36] LABS: INFLUENZA A NAA NEGATIVE (NEGATIVE); INFLUENZA B NAA NEGATIVE (NEGATIVE)
[2024-08-13 14:37] LABS: CORONAVIRUS COVID-19 NAA NEGATIVE (NEGATIVE)
[2024-08-13] MEDS: cefTRIAXone 2 GM Vial IVPUSH ONE (14:53)
[2024-08-13] MEDS: Sodium Chloride 0.9% 1,000 ML IV SCH (15:01)
[2024-08-13] MEDS: Albuterol/Ipratropium 3.0-0.5 MG/3 ML Neb Soln NEB ONE (15:10)
[2024-08-13 16:28] LABS: APPEARANCE,URINE SLIGHTLY CLOUDY (CLEAR); BILIRUBIN,URINE NEGATIVE (NEGATIVE); COLOR,URINE YELLOW (YELLOW); GLUCOSE,URINE NEGATIVE (NEGATIVE); KETONES,URINE NEGATIVE (NEGATIVE); LEUKOCYTE ESTERASE,URINE SMALL (NEGATIVE); NITRITE,URINE POSITIVE (NEGATIVE); OCCULT BLOOD,URINE NEGATIVE (NEGATIVE); PH,URINE 5.5 (5.0-9.0); PROTEIN,URINE TRACE mg/dL (NEGATIVE); UROBILINOGEN,URINE 0.2 E.U./dL (0.2-1.0)
[2024-08-13 16:36] LABS: BACTERIA,URINE MANY /HPF (NONE TO FEW); EPITHELIAL CELLS,URINE FEW /LPF; RBC,URINE 0-5 /HPF (0-5)
[2024-08-13] MEDS ORDERED: Albuterol/Ipratropium 3.0-0.5 MG/3 ML Neb Soln NEB PRN (17:03)
[2024-08-13] MEDS: Azithromycin 500 MG in Sodium Chloride 0.9% 250 ML IV SCH (18:16)
[2024-08-13] MEDS: Nicotine 14 MG/24 Hr Patch TRDERM SCH (18:17)
[2024-08-13] MEDS: Pravastatin 20 MG Tab PO SCH (21:07)
[2024-08-13] MEDS: Omeprazole 20 MG Cap.CR PO SCH (21:07)
[2024-08-13] MEDS: Gabapentin 300 MG Cap PO SCH (21:08)
[2024-08-13] MEDS: NS with KCl 40mEq 1,000 ML IV SCH (21:08)
[2024-08-13] MEDS: Potassium Chloride 20 MEQ Tab.ER PO ONE (22:01)
[2024-08-13] MEDS: ALPRAZolam 0.25 MG Tab PO PRN (22:49)
[2024-08-14] MEDS: diphenhydrAMINE 25 MG Cap PO ONE (03:01)
[2024-08-14 07:25] LABS: BASOPHILS ABSOLUTE AUTO 0.02 10^3/uL (0.00-0.10); BASOPHILS PERCENT AUTO 0.2 % (0.0-1.0); EOSINOPHILS ABSOLUTE AUTO 0.07 10^3/uL (0.10-0.30); EOSINOPHILS PERCENT AUTO 0.7 % (1.0-3.0); HEMATOCRIT 27.8 % (37.0-47.0); HEMOGLOBIN 9.4 g/dL (12.0-16.0); IMMATURE GRAN ABSOLUTE AUTO 0.05 10^3/uL (0.00-0.04); IMMATURE GRAN PERCENT AUTO 0.5 % (0.0-0.4); LYMPHOCYTES ABSOLUTE AUTO 1.22 10^3/uL (1.00-4.00); LYMPHOCYTES PERCENT AUTO 12.4 % (20.0-40.0); MEAN CORPUSCULAR HEMOGLOBIN 31.2 pg (27.0-31.0); MEAN CORPUSCULAR HGB CONC 33.8 g/dL (32.0-36.0); MEAN CORPUSCULAR VOLUME 92.4 fL (82.0-92.0); MEAN PLATELET VOLUME 8.4 fL (7.4-10.4); MONOCYTES ABSOLUTE AUTO 0.78 10^3/uL (0.10-0.80); MONOCYTES PERCENT AUTO 7.9 % (2.0-8.0); NEUTROPHILS ABSOLUTE AUTO 7.68 10^3/uL (2.50-7.00); NEUTROPHILS PERCENT AUTO 78.3 % (50.0-70.0); PLATELET COUNT,PLT 508 10^3/uL (150-400); RED BLOOD CELL COUNT 3.01 10^6/uL (3.80-5.50); RED CELL DISTRIBUTION WIDTH 14.9 % (11.5-14.5); WHITE BLOOD CELL COUNT,WBC 9.82 10^3/uL (5.00-10.00)
[2024-08-14 07:44] LABS: ALBUMIN 1.93 g/dL (3.40-5.00); ANION GAP 13.8 mmol/L (5-15); BILIRUBIN TOTAL 0.2 mg/dL (0.2-1.0); CALCIUM 7.7 mg/dL (8.7-10.3); CARBON DIOXIDE,CO2 29.5 mmol/L (21.0-32.0); CREATININE 0.48 mg/dL (0.51-1.17); EST CRCL DRUG DOSING (CG) 85.1 mL/min; POTASSIUM,K 3.3 mmol/L (3.5-5.1); PROTEIN TOTAL,TP 6.2 g/dL (6.4-8.2)
[2024-08-14] MEDS: Oxybutynin 5 MG Tab.ER PO SCH (09:28)
[2024-08-14] MEDS: Enoxaparin 40 MG/0.4 ML Syringe SUBCUT SCH (09:28)
[2024-08-14] MEDS: Gabapentin 300 MG Cap PO SCH (11:37)
[2024-08-14] MEDS: Nicotine 14 MG/24 Hr Patch TRDERM SCH (13:55)
[2024-08-14] MEDS: Nicotine 21 MG/24 Hr Patch TRDERM SCH (14:09)
[2024-08-14] MEDS: traMADol 50 MG Tab PO PRN (14:09)
[2024-08-14] MEDS: cefTRIAXone 2 GM Vial IVPUSH SCH (14:16)
[2024-08-14] MEDS: Acetaminophen/HYDROcodone 325-5 MG Tab PO PRN (15:34)
[2024-08-14] MEDS: Losartan 50 MG Tab PO SCH (20:26)
[2024-08-14] MEDS: cloNIDine 0.1 MG Tab PO SCH (21:25)
[2024-08-15] MEDS: Acetaminophen 325 MG Tab PO PRN (04:49)
[2024-08-15 07:21] LABS: BASOPHILS ABSOLUTE AUTO 0.02 10^3/uL (0.00-0.10); BASOPHILS PERCENT AUTO 0.2 % (0.0-1.0); EOSINOPHILS ABSOLUTE AUTO 0.11 10^3/uL (0.10-0.30); HEMATOCRIT 30.7 % (37.0-47.0); HEMOGLOBIN 10.2 g/dL (12.0-16.0); IMMATURE GRAN ABSOLUTE AUTO 0.12 10^3/uL (0.00-0.04); IMMATURE GRAN PERCENT AUTO 1.1 % (0.0-0.4); LYMPHOCYTES ABSOLUTE AUTO 1.52 10^3/uL (1.00-4.00); LYMPHOCYTES PERCENT AUTO 13.4 % (20.0-40.0); MEAN CORPUSCULAR HEMOGLOBIN 30.7 pg (27.0-31.0); MEAN CORPUSCULAR HGB CONC 33.2 g/dL (32.0-36.0); MEAN CORPUSCULAR VOLUME 92.5 fL (82.0-92.0); MEAN PLATELET VOLUME 8.5 fL (7.4-10.4); MONOCYTES PERCENT AUTO 5.3 % (2.0-8.0); NEUTROPHILS ABSOLUTE AUTO 8.95 10^3/uL (2.50-7.00); PLATELET COUNT,PLT 569 10^3/uL (150-400); RED BLOOD CELL COUNT 3.32 10^6/uL (3.80-5.50); RED CELL DISTRIBUTION WIDTH 15.2 % (11.5-14.5); WHITE BLOOD CELL COUNT,WBC 11.32 10^3/uL (5.00-10.00)
[2024-08-15 07:41] LABS: ALBUMIN 2.12 g/dL (3.40-5.00); ANION GAP 13.6 mmol/L (5-15); BILIRUBIN TOTAL 0.3 mg/dL (0.2-1.0); CALCIUM 8.1 mg/dL (8.7-10.3); CARBON DIOXIDE,CO2 27.8 mmol/L (21.0-32.0); CREATININE 0.44 mg/dL (0.51-1.17); EST CRCL DRUG DOSING (CG) 92.84 mL/min; POTASSIUM,K 3.4 mmol/L (3.5-5.1); PROTEIN TOTAL,TP 6.9 g/dL (6.4-8.2)
[2024-08-15] MEDS: Ondansetron 4 MG/2 ML SDV IV PRN (08:13)
== END 2024-08-15 12:12 | disposition home or self-care (01) | DRG 871 ==
LOC: KA.ED 13:21 → KA.MS 15:17
PROVIDERS: ADMIT Internal Medicine; ATTEND Internal Medicine
DX: A41.51 Sepsis due to Escherichia coli [E. coli] (principal); I95.1 Orthostatic hypotension; F17.200 Nicotine dependence, unspecified, uncomplicated; I10 Essential (primary) hypertension; J18.9 Pneumonia, unspecified organism; J96.01 Acute respiratory failure with hypoxia; I50.32 Chronic diastolic (congestive) heart failure; N39.0 Urinary tract infection, site not specified; R65.20 Severe sepsis without septic shock; H40.9 Unspecified glaucoma; E78.00 Pure hypercholesterolemia, unspecified; I11.0 Hypertensive heart disease with heart failure; K21.9 Gastro-esophageal reflux disease without esophagitis; M79.7 Fibromyalgia; F17.210 Nicotine dependence, cigarettes, uncomplicated; F15.90 Other stimulant use, unspecified, uncomplicated; G89.29 Other chronic pain; G62.9 Polyneuropathy, unspecified; D53.9 Nutritional anemia, unspecified; F41.9 Anxiety disorder, unspecified; Z88.8 Allergy status to other drugs, medicaments and biological substances; Z79.1 Long term (current) use of non-steroidal anti-inflammatories (NSAID); Z79.02 Long term (current) use of antithrombotics/antiplatelets; Z79.899 Other long term (current) drug therapy; Z90.89 Acquired absence of other organs; Z98.890 Other specified postprocedural states; Z98.51 Tubal ligation status
CPT/HCPCS: 0240U; 36415; 71045; 80053; 81001; 83605; 84484; 85025; 87040; 87086; 87088; 87186; 93005; 93010; 96361; 96374; 99223-GT; 99233-GT; 99239-GT; 99284; 99285-25; A9270-GY; J0456; J0696; J1650; J2405; J3480; J7030; J7620-GY; Q3014

== ENCOUNTER 2025-02-09 05:22 | Emergency (ER) | payer OTHER, MEDICARE | END 2025-02-09 06:13 | disposition home or self-care (01) | LOC: KA.ED 05:22 | DX: S90.822A Blister (nonthermal), left foot, initial encounter (principal); I11.0 Hypertensive heart disease with heart failure; I50.30 Unspecified diastolic (congestive) heart failure; E78.00 Pure hypercholesterolemia, unspecified; K21.9 Gastro-esophageal reflux disease without esophagitis; Z79.899 Other long term (current) drug therapy; Z88.0 Allergy status to penicillin; X58.XXXA Exposure to other specified factors, initial encounter | CPT/HCPCS: 16000; 99283; 99283-25 ==